=== PATIENT | female | born 1975 | race Caucasian/White ===

== ENCOUNTER 2024-09-28 14:50 | Outpatient (CLI) | payer BC | END 2024-09-28 14:51 | disposition home or self-care (01) | LOC: BICMAMMO 14:50 | PROVIDERS: ATTEND Family Medicine | DX: Z12.31 Encounter for screening mammogram for malignant neoplasm of breast (principal); Z80.3 Family history of malignant neoplasm of breast; Z91.89 Other specified personal risk factors, not elsewhere classified | CPT/HCPCS: 77063; 77067 ==

== ENCOUNTER 2024-10-18 14:15 | Outpatient (CLI) | payer BC | END 2024-10-18 14:16 | disposition home or self-care (01) | LOC: MRI 14:15 | PROVIDERS: ATTEND Student in an Organized Health Care Education/Training Program | DX: M23.91 Unspecified internal derangement of right knee (principal); S83.271A Complex tear of lateral meniscus, current injury, right knee, initial encounter; R93.6 Abnormal findings on diagnostic imaging of limbs; M25.461 Effusion, right knee; M85.861 Other specified disorders of bone density and structure, right lower leg ==

== ENCOUNTER 2025-01-10 16:13 | Outpatient (CLI) | payer BC ==
[2025-01-10 17:19] LABS: #Basophils 0.07 10x3/uL (0.0-0.2); #Eosinophils 0.47 10x3/uL (0.0-0.7); #Monocytes 0.52 10x3/uL (0.11-0.59); #Neutrophils 3.35 10x3/uL (1.40-6.50); %Basophils 1.0 % (0.0-1.0); %Eosinophils 6.7 % (0.0-10.0); %Lymphocytes 36.8 % (21.0-51.0); %Monocytes 7.4 % (0.0-10.0); %Neutrophils 47.8 % (42.0-75.0); Hematocrit 40.1 % (36.0-47.0); Hemoglobin 13.3 g/dL (12.0-16.0); Mean Corpuscular Hemoglobin 28.7 pg (27.0-31.0); Mean Corpuscular Volume 86.4 fL (78.0-98.0); Platelet Count 184 10x3/uL (130-400); Red Blood Cell (RBC) Count 4.64 mill/uL (4.20-5.40); White Blood Cell (WBC) Count 7.01 10x3/uL (4.8-10.8)
[2025-01-10 17:33] LABS: INR-International Normal Ratio 1.0; PTT 30.1 sec (22.9-36.1); Prothrombin Time 13.0 sec (12.0-14.7)
[2025-01-10 17:36] LABS: Anion Gap 15 mmol/L (10-20); BUN (Urea Nitrogen) 15 mg/dL (7.0-18.7); Calc. Creatinine Clearance 0 mL/min (70-130); Calcium 9.7 mg/dL (7.8-10.44); Carbon Dioxide 26 mmol/L (22-29); Chloride 102 mmol/L (98-107); Glucose 93 mg/dL (70-105); Potassium 4.1 mmol/L (3.5-5.1); Sodium 139 mmol/L (136-145)
== END 2025-01-10 16:14 | disposition home or self-care (01) ==
LOC: LABBT 16:13
PROVIDERS: ATTEND Student in an Organized Health Care Education/Training Program
DX: Z01.818 Encounter for other preprocedural examination (principal); S83.271A Complex tear of lateral meniscus, current injury, right knee, initial encounter
CPT/HCPCS: 71046; 80048; 85025; 85610; 85730; 93005; 93010